=== PATIENT | female | born 1995 | race Caucasian/White ===

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

== ENCOUNTER 2017-02-05 16:05 | Observation (INO) | payer MEDICAID, OTHER ==
--- NOTE | 2017-02-05 17:31 | ED PDOC ---
Arrival/HPI <Jerry Menendez - Last Filed: 02/05/17 18:52> - General Historian: Patient - History of Present Illness Time/Duration: Prior to Arrival Symptom Onset: Sudden Symptom Course: Intermittent Context: Home <Halie Barrientos - Last Filed: 02/05/17 18:56> - General Chief Complaint: Palpitations Time Seen by Provider: 02/05/17 16:48 - History of Present Illness Narrative History of Present Illness (Text): 02/05/17 17:20 21 yo female with PMH of wang parkinson white syndrome s/p ablation, anxiety presented to ED with palpitations. Patient states that for the past 3-4 days she has been experiencing palpitation, the last one occurred 20 minutes prior to arrival. Today patient had multiple episodes. The episodes last for about 10 -25 minutes. She states that with the palpitation she has chest tightness and SOB. The episodes occur at rest and with activities. Patient states that her gun fitter previously advised her to squat and bare down. Patient had ablation 3-4 year ago and has had occasional episodes. Patient states that this week she also start a new diet taking apple cider vinegar shots. She reports some weakness with the start of her diet. She denies fever, chills, abd pain, recent travel. Patient states that she recently had miscarriage but has not had appropriate follow up due to lack of insurance. PMD: none (Halie Barrientos) Past Medical History - Provider Review Nursing Documentation Reviewed: Yes - Travel History Have you recently traveled outside [place] w/in the past 3 mons?: No - Infectious Disease Hx of Infectious Diseases: None - Tetanus Immunization Tetanus Immunization: Unknown - Cardiac Hx Cardiac Disorders: Yes Other/Comment: Imkbb-Qvzjfebx-Ifmcu Syndrome - Pulmonary Hx Respiratory Disorders: No - Neurological Hx Neurological Disorder: No Hx Alzheimer's Disease: No - HEENT Hx HEENT Disorder: No - Renal Hx Renal Disorder: No - Endocrine/Metabolic Hx Endocrine Disorders: No - Hematological/Oncological Hx Blood Disorders: No - Integumentary Hx Dermatological Disorder: No - Musculoskeletal/Rheumatological Hx Musculoskeletal Disorders: No - Gastrointestinal Hx Gastrointestinal Disorders: No - Genitourinary/Gynecological Hx Genitourinary Disorders: No - Psychiatric Hx Psychophysiologic Disorder: Yes Hx Anxiety: Yes Hx Substance Use: Yes (CANNABIS) - Surgical History Other/Comment: Opony-Rynqqjww-Parqt Syndrome ablasion August 2014 - Anesthesia Hx Anesthesia: Yes Hx Anesthesia Reactions: No Hx Malignant Hyperthermia: No <Halie Barrientos - Last Filed: 02/05/17 18:56> Family/Social History - Physician Review Nursing Documentation Reviewed: Yes Family/Social History: No Known Family HX Smoking Status: Light Smoker < 10 Cigarettes Daily Hx Alcohol Use: Yes Frequency of alcohol use: Socially Hx Substance Use: Yes (CANNABIS) <Halie Barrientos - Last Filed: 02/05/17 18:56> Allergies/Home Meds <Jerry Menendez - Last Filed: 02/05/17 18:52> <Halie Barrientos - Last Filed: 02/05/17 18:56> Allergies/Adverse Reactions: Allergies milk Allergy (Verified 02/05/17 16:31) ANAPHYLAXIS peanut Allergy (Verified 02/05/17 16:31) ANAPHYLAXIS shellfish derived Allergy (Verified 02/05/17 16:31) ANAPHYLAXIS Home Medications: Home Meds Medication Instructions Recorded Confirmed No Known Home Med 02/05/17 02/05/17 Review of Systems - Review of Systems Constitutional: Fatigue. absent: Fevers Eyes: Normal. absent: Vision Changes ENT: Normal. absent: Sore Throat, Rhinorrhea, Sinus Congestion Respiratory: SOB (with palpitaions ). absent: Cough, Wheezing Cardiovascular: Chest Pain, Palpitations. absent: Edema, Calf Pain, Syncope Gastrointestinal: Normal. absent: Abdominal Pain, Constipation, Diarrhea, Nausea, Vomiting Genitourinary Female: Normal. absent: Dysuria, Frequency, Hematuria Musculoskeletal: Normal. absent: Arthralgias, Back Pain, Myalgias Skin: Normal. absent: Rash, Pruritis, Laceration, Ulcer Neurological: Normal. absent: Headache, Dizziness, Focal Weakness Endocrine: Normal. absent: Polyuria, Polydipsia Hemo/Lymphatic: Normal. absent: Easy Bleeding, Easy Bruising Psychiatric: Anxiety. absent: Depression <Halie Barrientos - Last Filed: 02/05/17 18:56> Physical Exam - Systems Exam Head: Present: Atraumatic, Normocephalic Pupils: Present: PERRL. No: Non-Reactive, Pinpoint Extroacular Muscles: Present: EOMI Conjunctiva: Present: Normal Mouth: Present: Moist Mucous Membranes Nose (External): Present: Atraumatic Neck: Present: Normal Range of Motion. No: MIDLINE TENDERNESS Respiratory/Chest: Present: Clear to Auscultation, Good Air Exchange. No: Respiratory Distress, Accessory Muscle Use, Wheezes, Rales, Rhonchi, Tachypneic Cardiovascular: Present: Regular Rate and Rhythm, Normal S1, S2. No: Murmurs, Irregular Rhythm, Tachycardic, Bradycardic Abdomen: Present: Normal Bowel Sounds. No: Tenderness, Distention, Peritoneal Signs Back: Present: Normal Inspection Upper Extremity: Present: Normal Inspection, NORMAL PULSES. No: Cyanosis, Edema , Tenderness, Swelling Lower Extremity: Present: Normal Inspection. No: Edema, CALF TENDERNESS Neurological: Present: GCS=15, CN II-XII Intact, Speech Normal Skin: Present: Warm, Dry, Normal Color. No: Rashes Psychiatric: Present: Alert, Oriented x 3, Normal Insight, Normal Concentration <Halie Barrientos - Last Filed: 02/05/17 18:56> Vital Signs Temp Pulse Resp BP Pulse Ox 02/05/17 18:50 85 18 135/87 99 02/05/17 16:32 98.4 F 85 17 96/61 L 97 Medical Decision Making <Jerry Menendez - Last Filed: 02/05/17 18:52> <Halie Barrientos - Last Filed: 02/05/17 18:56> ED Course and Treatment: 02/05/17 17:33 Impression: 21 yo female with PMH of wang parkinson white syndrome s/p ablation, anxiety presented to ED with palpitations. Differential diagnosis includes but not limited to: - arrhythmia Plan - EKG - CBC, CMP - cardiac ISO - test - cxr 02/05/17 18:54 - Lab reviewed, WNL, pregnacny test negative. EKG 83 BPM, no ST changes., no delta waves. CXR review no active disease. Patient is doing well, no complaints of palpitations, chest pain. Patient will be admitted for observation for any cardiac events. (Halie Barrientos) - Lab Interpretations Lab Results: 02/05/17 17:30 02/05/17 17:30 Lab Results 02/05/17 17:30: Sodium 143, Potassium 3.7, Chloride 107, Carbon Dioxide 23, Anion Gap 17, BUN 12, Creatinine 0.8, Est GFR ( Amer) > 60, Est GFR (Non- Af Amer) > 60, Random Glucose 83, Calcium 9.7, Total Bilirubin 0.7, AST 31, ALT 47, Alkaline Phosphatase 110, Lactate Dehydrogenase 621, Total Creatine Kinase 74, Troponin I < 0.01, Total Protein 8.2, Albumin 4.5, Globulin 3.7, Albumin/ Globulin Ratio 1.2 02/05/17 17:30: WBC 6.7, RBC 5.03, Hgb 12.1, Hct 37.8, MCV 75.1 L, MCH 24.1 L, MCHC 32.0, RDW 14.3, Plt Count 241, MPV 9.9, Gran % 65.2, Lymph % (Auto) 25.6, [place] % (Auto) 4.2, Eos % (Auto) 4.7, Baso % (Auto) 0.3, Gran # 4.34, Lymph # 1.7 , [place] # 0.3, Eos # 0.3, Baso # 0.02 - RAD Interpretation Radiology Orders: 02/05/17 17:41 CXR [CHEST PORTABLE] [RAD] Stat - EKG Interpretation EKG Interpretation (Text): 02/05/17 17:35 Rate: 83 BPM NSR, no ST changes, no deltawaves, ND wnl (Halie Barrientos) ED OBSERVATION Date of observation admission: 02/05/17 Time of observation admission: 16:48 <Jerry Menendez - Last Filed: 02/05/17 18:52> <Halie Barrientos - Last Filed: 02/05/17 18:56> - Observation admission statement Patient is being placed in observation because:: Needs to be placed on observation for monitoring of palpitations. (Jerry Menendez) - Goals of Observation Goals of observation are:: Patient Seen With Resident: In agreement with resident note which contains more details about the patient. Patient was seen and evaluated with resident. Came up with plan and treatment together. A 21 year old female presents with palpitations and shortness of breath and chest tightness. Additional HPI details as noted by resident. On physical exam, no acute findings. EKG and labs ordered. (Jerry Menendez) - Progress Note Progress Note: 02/05/17 18:[address] Roy Guardian Family Member who states to place on observation overnight and he will evaluate patient in the AM CXR nl. Case signed out to Dr. Meza, Perforating Machine Operator. Admitted to the hospitalist service. (Jerry Menendez) - Scribe Statement The provider has reviewed the documentation as recorded by the Scribe <Jerry Menendez - Last Filed: 02/05/17 18:52> <Halie Barrientos - Last Filed: 02/05/17 18:56> - Scribe Statement Raza Dee Provider Scribe Attestation: All medical record entries made by the Scribe were at my direction and personally dictated by me. I have reviewed the chart and agree that the record accurately reflects my personal performance of the history, physical exam, medical decision making, and the department course for this patient. I have also personally directed, reviewed, and agree with the discharge instructions and disposition. (Jerry Menendez) Disposition/Present on Arrival - Present on Arrival Any Indicators Present on Arrival: No - Disposition Have Diagnosis and Disposition been Completed?: Yes Disposition Time: 18:53 Patient Plan: Observation <Jerry Menendez - Last Filed: 02/05/17 18:52> - Present on Arrival History of DVT/PE: No History of Uncontrolled Diabetes: No Urinary Catheter: No History of Decub. Ulcer: No History Surgical Site Infection Following: None - Disposition Have Diagnosis and Disposition been Completed?: Yes <Halie Barrientos - Last Filed: 02/05/17 18:56> - Disposition Diagnosis: Palpitations, Chest pain Patient Problems: Current Active Problems Problem Status Onset Palpitations Acute Chest pain Acute Condition: GOOD
[2017-02-05 17:51] LABS: ADD MANUAL DIFF? NO
[2017-02-05 18:01] LABS: BASO # 0.02 K/mm3 (0.0-2.0); BASO % 0.3 % (0.0-3.0); EOS # 0.3 (0.0-0.7); EOS % 4.7 % (1.5-5.0); GRAN # 4.34 (1.4-6.5); GRAN % 65.2 % (50.0-68.0); HEMATOCRIT 37.8 % (36.0-48.0); LYMPH # 1.7 (1.2-3.4); LYMPH % 25.6 % (22.0-35.0); MEAN CELL VOLUME 75.1 fL (80.0-105.0); MEAN CORPUSCULAR HEMOGLOBIN 24.1 pg (25.0-35.0); MEAN PLATELET VOLUME 9.9 fl (7.0-11.0); MONO # 0.3 (0.1-0.6); MONO % 4.2 % (1.0-6.0); PLATELET COUNT 241 10^3/uL (120.0-450.0); RED CELL DISTRIBUTION WIDTH 14.3 % (11.5-14.5); WHITE BLOOD COUNT 6.7 10^3/ul (4.5-11.0)
[2017-02-05 18:06] LABS: ALB/GLOB RATIO 1.2 (1.1-1.8); ALKALINE PHOSPHATASE 110 U/L (38-133); ALT/SGPT 47 U/L (7-56); AST/SGOT 31 U/L (15-39); BILIRUBIN,TOTAL 0.7 mg/dL (0.2-1.3); BLOOD UREA NITROGEN 12 mg/dL (7-21); CALCIUM 9.7 mg/dL (8.4-10.5); CARBON DIOXIDE 23 mmol/L (21-33); CHLORIDE 107 mmol/L (98-107); GFR AFRICAN-AMERICAN > 60; GLUCOSE,RANDOM 83 mg/dL (70-110); POTASSIUM 3.7 mmol/L (3.6-5.0); SODIUM 143 mmol/L (132-148); TOTAL PROTEIN 8.2 g/dL (5.8-8.3)
[2017-02-05 18:18] LABS: TROPONIN I < 0.01 ng/mL
--- NOTE | 2017-02-05 19:24 | CP.PCM.HP ---
<VicenteRufino - Last Filed: 02/05/17 19:37> History of Present Illness - History of Present Illness History of Present Illness: CC: palpitations This patient is a 21yo F w/ a PMHx of WPW s/p ablation therapy 4 years ago at [facility]; she had been following up there with a account executive healthcare until this year when her insurance ran out. She states that for the past week she has been experiencing palpitations, and normally will squat down and bear down which typically cures her palpitations. She is on no medications. She states she had a miscarriage 1 month ago and UTI for which she was treated with an unknown antibiotic; she has never been other than this time. She denies fevers/chills, VALLE, CP, SOB, current palpitations, abdominal pain, N/V/D, leg swelling/pain, no decreased exercise tolerance, uses 1 pillow to sleep, has never woken up in the middle of the night gasping for air. PMHx: WPW s/p ablation 4 years ago Allergies: None Surgeries: ablation Social: Lives at home, not in college, admits to occasional drug use marijuana only states she felt like she has been "laced with daniel dust" a few times, smokes 3-4 cigarettes daily, denies other drug use. FamHx: Denies Meds: denies Present on Admission - Present on Admission Any Indicators Present on Admission: No History of DVT/PE: No History of Uncontrolled Diabetes: No Urinary Catheter: No Decubitus Ulcer Present: No Past Patient History - Infectious Disease Hx of Infectious Diseases: None - Tetanus Immunizations Tetanus Immunization: Unknown - Past Social History Smoking Status: Light Smoker < 10 Cigarettes Daily - CARDIAC Hx Cardiac Disorders: Yes Other/Comment: Qeztn-Tjfxnjvz-Bjpxl Syndrome - PULMONARY Hx Respiratory Disorders: No - NEUROLOGICAL Hx Neurological Disorder: No Hx Alzheimer's Disease: No - HEENT Hx HEENT Problems: No - RENAL Hx Chronic Kidney Disease: No - ENDOCRINE/METABOLIC Hx Endocrine Disorders: No - HEMATOLOGICAL/ONCOLOGICAL Hx Blood Disorders: No - INTEGUMENTARY Hx Dermatological Problems: No - MUSCULOSKELETAL/RHEUMATOLOGICAL Hx Musculoskeletal Disorders: No - GASTROINTESTINAL Hx Gastrointestinal Disorders: No - GENITOURINARY/GYNECOLOGICAL Hx Genitourinary Disorders: No - PSYCHIATRIC Hx Psychophysiologic Disorder: Yes Hx Anxiety: Yes Hx Substance Use: Yes (CANNABIS) - SURGICAL HISTORY Other/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 - ANESTHESIA Hx Anesthesia: Yes Hx Anesthesia Reactions: No Hx Malignant Hyperthermia: No Meds Allergies/Adverse Reactions: Allergies Allergy/AdvReac Type Severity Reaction Status Date / Time milk Allergy ANAPHYLAXIS Verified 02/05/17 16:31 peanut Allergy ANAPHYLAXIS Verified 02/05/17 16:31 shellfish derived Allergy ANAPHYLAXIS Verified 02/05/17 16:31 Physical Exam - Constitutional Appears: Well, Non-toxic Additional comments: Obese pleasant teenage F responding appropriately to questions resting comfortably in bed - Head Exam Head Exam: ATRAUMATIC - Eye Exam Eye Exam: EOMI, Normal appearance Pupil Exam: NORMAL ACCOMODATION - ENT Exam ENT Exam: Mucous Membranes Moist - Neck Exam Neck exam: Positive for: Normal Inspection. Negative for: Tenderness - Respiratory Exam Respiratory Exam: Clear to Auscultation Bilateral, NORMAL BREATHING PATTERN. absent: Rales, Rhonchi, Wheezes - Cardiovascular Exam Cardiovascular Exam: REGULAR RHYTHM, +S1, +S2 - GI/Abdominal Exam GI & Abdominal Exam: Normal Bowel Sounds, Soft. absent: Tenderness - Rectal Exam Rectal Exam: Deferred - Extremities Exam Extremities exam: Positive for: full ROM, normal capillary refill, normal inspection. Negative for: calf tenderness, joint swelling, pedal edema, tenderness - Back Exam Back exam: NORMAL INSPECTION. absent: CVA tenderness (L), CVA tenderness (R) - Neurological Exam Neurological exam: Alert, CN II-XII Intact, Oriented x3, Reflexes Normal - Psychiatric Exam Psychiatric exam: Normal Affect, Normal Mood - Skin Skin Exam: Intact Results - Vital Signs Recent Vital Signs: Last Vital Signs Temp 98.4 F 02/05/17 16:32 Pulse 85 02/05/17 18:50 Resp 18 02/05/17 18:50 BP 135/87 02/05/17 18:50 Pulse Ox 99 02/05/17 18:50 - Labs Result Diagrams: 02/05/17 17:30 02/05/17 17:30 Assessment & Plan - Assessment and Plan (Free Text) Assessment: 21yo F admitted for Palpitations Palpitations -patient has known WPW -Cardio Consult; [facility]; appreciate recs -echo ordered; f/u results; portable chest showed possible cardiomegaly; last echo was 5 years ago according to patient -telemetry monitoring -will check mag and phos; can contribute to arrythmia -in the event she has palpitations patient should bear down -EKG did not show any delta wave or shortened SC interval; will repeat in AM -f/u next trop; initial negative Proph -Pepcid -SCD -regular diet Patient seen and examined with Dr. Kelsea Meza PGY1 Night Float Decision To Admit - Pt Status Changed To: Hospital Disposition Of: Observation - . Bed Request Type: Telemetry Admitting Physician: Luca Enamorado <Luca Enamorado - Last Filed: 02/05/17 22:18> Results - Vital Signs Recent Vital Signs: Last Vital Signs Temp 98.4 F 02/05/17 16:32 Pulse 81 02/05/17 20:03 Resp 18 02/05/17 20:03 BP 131/68 02/05/17 20:03 Pulse Ox 100 02/05/17 20:03 - Labs Result Diagrams: 02/05/17 17:30 02/05/17 17:30 Labs: Laboratory Results - last 24 hr 02/05/17 02/05/17 19:00 20:00 Urine HCG, Qual Negative Urine Opiates Screen Negative Urine Methadone Screen Negative Ur Barbiturates Screen Negative Ur Phencyclidine Scrn Negative Ur Amphetamines Screen Negative U Benzodiazepines Scrn Negative U Oth Cocaine Metabols Negative U Cannabinoids Screen Negative Attending/Attestation - Attestation I have personally seen and examined this patient.: Yes I have fully participated in the care of the patient.: Yes I have reviewed all pertinent clinical information: Yes
[2017-02-05 19:54] LABS: MAGNESIUM 1.9 mg/dL (1.7-2.2); PHOSPHOROUS 3.7 mg/dL (2.5-4.5)
[2017-02-05 20:04] VITALS: O2SAT 100
[2017-02-06 04:05] VITALS: RESP 20; BMI 50.1
[2017-02-06 06:44] LABS: ADD MANUAL DIFF? NO
[2017-02-06 07:08] LABS: BASO # 0.03 K/mm3 (0.0-2.0); BASO % 0.5 % (0.0-3.0); EOS # 0.4 (0.0-0.7); EOS % 6.7 % (1.5-5.0); GRAN # 3.24 (1.4-6.5); GRAN % 55.4 % (50.0-68.0); LYMPH # 1.8 (1.2-3.4); LYMPH % 30.6 % (22.0-35.0); MEAN CELL VOLUME 75.6 fL (80.0-105.0); MEAN CORPUSCULAR HEMOGLOBIN 23.9 pg (25.0-35.0); MEAN CORPUSCULAR HGB CONC 31.7 g/dl (31.0-37.0); MEAN PLATELET VOLUME 9.5 fl (7.0-11.0); MONO # 0.4 (0.1-0.6); MONO % 6.8 % (1.0-6.0); PLATELET COUNT 270 10^3/uL (120.0-450.0); RED CELL DISTRIBUTION WIDTH 14.3 % (11.5-14.5); WHITE BLOOD COUNT 5.9 10^3/ul (4.5-11.0)
[2017-02-06 08:34] LABS: ALB/GLOB RATIO 1.2 (1.1-1.8); ALKALINE PHOSPHATASE 91 U/L (38-133); ALT/SGPT 40 U/L (7-56); AST/SGOT 60 U/L (15-39); BILIRUBIN,TOTAL 0.5 mg/dL (0.2-1.3); BLOOD UREA NITROGEN 14 mg/dL (7-21); CALCIUM 8.9 mg/dL (8.4-10.5); CARBON DIOXIDE 27 mmol/L (21-33); CHLORIDE 104 mmol/L (98-107); GFR AFRICAN-AMERICAN > 60; GLUCOSE,RANDOM 80 mg/dL (70-110); POTASSIUM 3.6 mmol/L (3.6-5.0); SODIUM 139 mmol/L (132-148); TOTAL PROTEIN 6.9 g/dL (5.8-8.3)
--- NOTE | 2017-02-06 08:56 | RAD ---
HISTORY: chestpain COMPARISON: No prior. FINDINGS: LUNGS: No active pulmonary disease. PLEURA: No significant pleural effusion identified, no pneumothorax apparent. CARDIOVASCULAR: Normal. OSSEOUS STRUCTURES: No significant abnormalities. VISUALIZED UPPER ABDOMEN: Normal. OTHER FINDINGS: None. IMPRESSION: No active disease.
--- NOTE | 2017-02-06 13:05 | CP.PCM.PN ---
<AngeloBolivar soto - Last Filed: 02/06/17 13:09> Subjective - Date & Time of Evaluation Date of Evaluation: 02/06/17 Time of Evaluation: 09:00 - Subjective Subjective: Pt was seen and examined at bedside. Pt has no acute complaints at this time. Pt states she is feeling better and without and further episodes of palpitations. As per nursing staff, no acute or adverse events overnight. Pt denied fever, chills, dizziness, confusion, sob, chest pains, palpitations, abdominal pains, n/v/d/c or urinary symptoms. Objective - Vital Signs/Intake and Output Vital Signs (last 24 hours): Temp Pulse Resp BP Pulse Ox 98.1 F 89 20 113/69 100 02/06/17 06:00 02/06/17 06:00 02/06/17 06:00 02/06/17 06:00 02/05/17 20:03 Intake and Output: 02/06/17 02/06/17 06:59 18:59 Intake Total 480 Output Total 350 Balance 130 - Medications Medications: Current Medications Acetaminophen (Tylenol 325mg Tab) 650 mg PO Q6H PRN PRN Reason: Fever >100.4 F Famotidine (Pepcid) 20 mg PO BID KEYLA Last Admin: 02/06/17 09:05 Dose: 20 mg Ibuprofen (Motrin Tab) 600 mg PO Q6H PRN PRN Reason: Pain, Mild (1-3) - Labs Labs: 02/06/17 06:30 02/06/17 06:30 - Constitutional Appears: Well, No Acute Distress - Head Exam Head Exam: ATRAUMATIC, NORMAL INSPECTION, NORMOCEPHALIC - Eye Exam Eye Exam: EOMI, Normal appearance, PERRL Pupil Exam: NORMAL ACCOMODATION, PERRL - ENT Exam ENT Exam: Mucous Membranes Moist, Normal Exam - Respiratory Exam Respiratory Exam: Clear to Ausculation Bilateral, NORMAL BREATHING PATTERN - Cardiovascular Exam Cardiovascular Exam: REGULAR RHYTHM, +S1, +S2. absent: Murmur - GI/Abdominal Exam GI & Abdominal Exam: Soft, Normal Bowel Sounds. absent: Tenderness - Extremities Exam Extremities Exam: Full ROM, Normal Capillary Refill, Normal Inspection. absent : Joint Swelling, Pedal Edema - Back Exam Back Exam: NORMAL INSPECTION - Neurological Exam Neurological Exam: Alert, Awake, CN II-XII Intact, Normal Gait, Oriented x3 - Psychiatric Exam Psychiatric exam: Normal Affect, Normal Mood - Skin Skin Exam: Dry, Intact, Normal Color, Warm Assessment and Plan - Assessment and Plan (Free Text) Assessment: 21 F with PMHx of WPW presenting with multiple episodes of palpitations. Palpitations -patient has known WPW s/p ablation 3-4 years ago a [facility] Dr. Pam Rodriguez -Cardio Consult; Dr. Boyce following, continue to monitor on tele -echo ordered; f/u results -in the event she has palpitations patient should bear down -EKG did not show any delta wave or shortened MN interval; will repeat in AM -serial trops neg - FU TSH Tobacco abuse - Educated on tobacco cessation - Nicotine patch offered Proph -Pepcid -SCD -regular diet <Jonas PEREZ,Dalton - Last Filed: 02/06/17 15:33> Objective - Vital Signs/Intake and Output Vital Signs (last 24 hours): Temp Pulse Resp BP Pulse Ox 97.8 F 70 20 104/56 L 100 02/06/17 12:00 02/06/17 12:00 02/06/17 12:00 02/06/17 12:00 02/05/17 20:03 Intake and Output: 02/06/17 02/06/17 06:59 18:59 Intake Total 480 Output Total 350 Balance 130 - Labs Labs: 02/06/17 06:30 02/06/17 06:30 Attending/Attestation - Attestation I have personally seen and examined this patient.: Yes I have fully participated in the care of the patient.: Yes I have reviewed all pertinent clinical information, including history, physical exam and plan: Yes Notes (Text): 02/06/17 15:33 Patient was seen and examined with biomedical equipment tech .Agreed with resident assessment and plan. Management plan was discussed in detail with patient Education was provided.
--- NOTE | 2017-02-06 13:06 | CARD ---
APPROVED REPORT EXAM: Two-dimensional and M-mode echocardiogram with Doppler and color Doppler. INDICATION WPW/CP/PALPITATIONS 2D DIMENSIONS Left Atrium (2D)3.1 (1.6-4.0cm)IVSd0.8 (0.7-1.1cm) LVDd4.4 (3.9-5.9cm)PWd0.9 (0.7-1.1cm) LVDs2.6 (2.5-4.0cm)FS (%) 41.0 % LVEF (%)72.0 (>50%) M-Mode DIMENSIONS Aortic Root2.50 (2.2-3.7cm)Aortic Cusp Exc.1.70 (1.5-2.0cm) Aortic Valve AoV Peak Mkwzfuww729.0cm/Alfred Peak GR.10mmHg Mitral Valve MV E Ycibxzqb07.7cm/sMV A Qpilwqxw94.7cm/sE/A ratio1.6 TDI Lateral E' Peak V19.80cm/sMedial E' Peak V11.50cm/sE/Lateral E'5.0 E/Medial E'8.7 Pulmonary Valve PV Peak Eamoexdx70.0cm/sPV Peak Grad.2mmHg Tricuspid Valve TR Peak Gxjvyhdm233ku/sRAP OOOQBLQC96cmAwGL Peak Gr.13mmHg [id number] LEFT VENTRICLE The left ventricle is normal size. There is normal left ventricular wall thickness. The left ventricular function is normal. The left ventricular ejection fraction is within the normal range. There is normal LV segmental wall motion. The left ventricular diastolic function is normal. RIGHT VENTRICLE The right ventricle is normal size. There is normal right ventricular wall thickness. The right ventricular systolic function is normal. ATRIA The left atrium size is normal. The right atrium size is normal. AORTIC VALVE The aortic valve is normal in structure. No aortic regurgitation is present. MITRAL VALVE The mitral valve is normal in structure. There is no mitral valve regurgitation noted. TRICUSPID VALVE The tricuspid valve is normal in structure. There is no pulmonary hypertension. GREAT VESSELS The aortic root is normal in size. The IVC is normal in size and collapses >50% with inspiration. <Conclusion> The left ventricle is normal size. There is normal left ventricular wall thickness. The left ventricular function is normal. The left ventricular ejection fraction is within the normal range. There is normal LV segmental wall motion. The left ventricular diastolic function is normal.
[2017-02-06 13:55] VITALS: BP 104/56; PULSE 70; TEMP 97.8
--- NOTE | 2017-02-06 14:09 | CP.PCM.DIS ---
<Bolivar Stephens - Last Filed: 02/06/17 14:55> Provider - Provider Date of Admission: 02/05/17 18:05 Attending physician: Dalton Mcdaniel MD Primary care physician: NO PRIMARY CARE PROVIDER Consults: Cardiology - Dr. Boyce Time Spent in preparation of Discharge (in minutes): 45 Hospital Course - Lab Results Lab Results: Most Recent Lab Values WBC 5.9 10^3/ul (4.5-11.0) 02/06/17 06:30 RBC 4.76 10^6/uL (3.5-6.1) 02/06/17 06:30 Hgb 11.4 gm/dL (12.0-16.0) L 02/06/17 06:30 Hct 36.0 % (36.0-48.0) 02/06/17 06:30 MCV 75.6 fL (80.0-105.0) L 02/06/17 06:30 MCH 23.9 pg (25.0-35.0) L 02/06/17 06:30 MCHC 31.7 g/dl (31.0-37.0) 02/06/17 06:30 RDW 14.3 % (11.5-14.5) 02/06/17 06:30 Plt Count 270 10^3/uL (120.0-450.0) 02/06/17 06:30 MPV 9.5 fl (7.0-11.0) 02/06/17 06:30 Gran % 55.4 % (50.0-68.0) 02/06/17 06:30 Lymph % (Auto) 30.6 % (22.0-35.0) 02/06/17 06:30 Foard % (Auto) 6.8 % (1.0-6.0) H 02/06/17 06:30 Eos % (Auto) 6.7 % (1.5-5.0) H 02/06/17 06:30 Baso % (Auto) 0.5 % (0.0-3.0) 02/06/17 06:30 Gran # 3.24 (1.4-6.5) 02/06/17 06:30 Lymph # 1.8 (1.2-3.4) 02/06/17 06:30 Foard # 0.4 (0.1-0.6) 02/06/17 06:30 Eos # 0.4 (0.0-0.7) 02/06/17 06:30 Baso # 0.03 K/mm3 (0.0-2.0) 02/06/17 06:30 Sodium 139 mmol/L (132-148) 02/06/17 06:30 Potassium 3.6 mmol/L (3.6-5.0) 02/06/17 06:30 Chloride 104 mmol/L (98-107) 02/06/17 06:30 Carbon Dioxide 27 mmol/L (21-33) 02/06/17 06:30 Anion Gap 12 (10-20) 02/06/17 06:30 BUN 14 mg/dL (7-21) 02/06/17 06:30 Creatinine 0.8 mg/dL (0.5-1.4) 02/06/17 06:30 Est GFR ( Amer) > 60 02/06/17 06:30 Est GFR (Non-Af Amer) > 60 02/06/17 06:30 Random Glucose 80 mg/dL (70-110) 02/06/17 06:30 Calcium 8.9 mg/dL (8.4-10.5) 02/06/17 06:30 Phosphorus 3.7 mg/dL (2.5-4.5) 02/05/17 17:35 Magnesium 1.9 mg/dL (1.7-2.2) 02/05/17 17:35 Total Bilirubin 0.5 mg/dL (0.2-1.3) 02/06/17 06:30 AST 60 U/L (15-39) H 02/06/17 06:30 ALT 40 U/L (7-56) 02/06/17 06:30 Alkaline Phosphatase 91 U/L (38-133) 02/06/17 06:30 Lactate Dehydrogenase 621 U/L (333-699) 02/05/17 17:30 Total Creatine Kinase 74 U/L (35-230) 02/05/17 17:30 Troponin I < 0.01 ng/mL 02/06/17 00:05 Total Protein 6.9 g/dL (5.8-8.3) 02/06/17 06:30 Albumin 3.7 g/dL (3.0-4.8) 02/06/17 06:30 Globulin 3.2 gm/dL 02/06/17 06:30 Albumin/Globulin Ratio 1.2 (1.1-1.8) 02/06/17 06:30 Urine HCG, Qual Negative (NEGATIVE) 02/05/17 20:00 Urine Opiates Screen Negative (NEGATIVE) 02/05/17 19:00 Urine Methadone Screen Negative (NEGATIVE) 02/05/17 19:00 Ur Barbiturates Screen Negative (NEGATIVE) 02/05/17 19:00 Ur Phencyclidine Scrn Negative (NEGATIVE) 02/05/17 19:00 Ur Amphetamines Screen Negative (NEGATIVE) 02/05/17 19:00 U Benzodiazepines Scrn Negative (NEGATIVE) 02/05/17 19:00 U Oth Cocaine Metabols Negative (NEGATIVE) 02/05/17 19:00 U Cannabinoids Screen Negative (NEGATIVE) 02/05/17 19:00 - Hospital Course Hospital Course: Pt is a 21yo F w/ a PMHx of WPW s/p ablation therapy 4 years ago at [facility] ; she had been following up there with a pediatric social worker until this year when her insurance ran out. She states that for the past week she has been experiencing palpitations, and normally will squat down and bear down which typically cures her palpitations. She is on no medications. She states she had a miscarriage 1 month ago and UTI for which she was treated with an unknown antibiotic; she has never been other than this time. Pt was admitted for multiple episodes of palpitations on 02/05/17. Pt has known WPW s/p ablation 3-4 years ago a [facility] Dr. Mendoza. Cardio Consult was placed, pt on tele monitoring and no further episodes of irregular rhythm. Dr. Boyce following. Echo was ordered with EF of 72%. Serial trops were negative. Pt was cleared by cardio to be dc home with fu with PMD and cardiology. Pt is to fu with PMD as per pt choice or fu with [facility] within 1 week. Pt is to fu with cardiology as per PMD or Dr. Boyce within 1 week. Pt has been educated on tobacco cessation with options on how to quit. Discharge Exam - Head Exam Head Exam: ATRAUMATIC, NORMAL INSPECTION, NORMOCEPHALIC - Eye Exam Eye Exam: EOMI, Normal appearance, PERRL Pupil Exam: NORMAL ACCOMODATION, PERRL - ENT Exam ENT Exam: Mucous Membranes Moist - Respiratory Exam Respiratory Exam: Clear to PA & Lateral, NORMAL BREATHING PATTERN, UNREMARKABLE - Cardiovascular Exam Cardiovascular Exam: RRR, +S1, +S2 - GI/Abdominal Exam GI & Abdominal Exam: Normal Bowel Sounds, Soft. absent: Tenderness - Extremities Exam Extremities exam: normal inspection - Back Exam Back exam: NORMAL INSPECTION - Neurological Exam Neurological exam: Alert, CN II-XII Intact, Normal Gait, Oriented x3, Reflexes Normal - Psychiatric Exam Psychiatric exam: Normal Affect, Normal Mood - Skin Skin Exam: Dry, Intact, Normal Color, Warm Discharge Plan - Follow Up Plan Condition: GOOD Disposition: HOME/ ROUTINE Instructions: Chest Pain (DC), Palpitations (DC) Additional Instructions: 1. Patient is to follow up with her Primary Medical Doctor of choice within 3-5 days. 2. Patient is to follow up with her quality control assessor as recommended by her Primary Medical Doctor. 3. Patient is welcome to return to [facility], Emergency Department if patient develops any acute symptoms. Referrals: PCP,NO [Primary Care Provider] - <Dalton Mcdaniel MD - Last Filed: 02/06/17 15:37> Provider - Provider Date of Admission: 02/05/17 18:05 Attending physician: Dalton Mcdaniel MD Primary care physician: NO PRIMARY CARE PROVIDER Hospital Course - Lab Results Lab Results: Most Recent Lab Values WBC 5.9 10^3/ul (4.5-11.0) 02/06/17 06:30 RBC 4.76 10^6/uL (3.5-6.1) 02/06/17 06:30 Hgb 11.4 gm/dL (12.0-16.0) L 02/06/17 06:30 Hct 36.0 % (36.0-48.0) 02/06/17 06:30 MCV 75.6 fL (80.0-105.0) L 02/06/17 06:30 MCH 23.9 pg (25.0-35.0) L 02/06/17 06:30 MCHC 31.7 g/dl (31.0-37.0) 02/06/17 06:30 RDW 14.3 % (11.5-14.5) 02/06/17 06:30 Plt Count 270 10^3/uL (120.0-450.0) 02/06/17 06:30 MPV 9.5 fl (7.0-11.0) 02/06/17 06:30 Gran % 55.4 % (50.0-68.0) 02/06/17 06:30 Lymph % (Auto) 30.6 % (22.0-35.0) 02/06/17 06:30 Foard % (Auto) 6.8 % (1.0-6.0) H 02/06/17 06:30 Eos % (Auto) 6.7 % (1.5-5.0) H 02/06/17 06:30 Baso % (Auto) 0.5 % (0.0-3.0) 02/06/17 06:30 Gran # 3.24 (1.4-6.5) 02/06/17 06:30 Lymph # 1.8 (1.2-3.4) 02/06/17 06:30 Foard # 0.4 (0.1-0.6) 02/06/17 06:30 Eos # 0.4 (0.0-0.7) 02/06/17 06:30 Baso # 0.03 K/mm3 (0.0-2.0) 02/06/17 06:30 Sodium 139 mmol/L (132-148) 02/06/17 06:30 Potassium 3.6 mmol/L (3.6-5.0) 02/06/17 06:30 Chloride 104 mmol/L (98-107) 02/06/17 06:30 Carbon Dioxide 27 mmol/L (21-33) 02/06/17 06:30 Anion Gap 12 (10-20) 02/06/17 06:30 BUN 14 mg/dL (7-21) 02/06/17 06:30 Creatinine 0.8 mg/dL (0.5-1.4) 02/06/17 06:30 Est GFR ( Amer) > 60 02/06/17 06:30 Est GFR (Non-Af Amer) > 60 02/06/17 06:30 Random Glucose 80 mg/dL (70-110) 02/06/17 06:30 Calcium 8.9 mg/dL (8.4-10.5) 02/06/17 06:30 Phosphorus 3.7 mg/dL (2.5-4.5) 02/05/17 17:35 Magnesium 1.9 mg/dL (1.7-2.2) 02/05/17 17:35 Total Bilirubin 0.5 mg/dL (0.2-1.3) 02/06/17 06:30 AST 60 U/L (15-39) H 02/06/17 06:30 ALT 40 U/L (7-56) 02/06/17 06:30 Alkaline Phosphatase 91 U/L (38-133) 02/06/17 06:30 Lactate Dehydrogenase 621 U/L (333-699) 02/05/17 17:30 Total Creatine Kinase 74 U/L (35-230) 02/05/17 17:30 Troponin I < 0.01 ng/mL 02/06/17 00:05 Total Protein 6.9 g/dL (5.8-8.3) 02/06/17 06:30 Albumin 3.7 g/dL (3.0-4.8) 02/06/17 06:30 Globulin 3.2 gm/dL 02/06/17 06:30 Albumin/Globulin Ratio 1.2 (1.1-1.8) 02/06/17 06:30 TSH 3rd Generation 2.49 mIU/mL (0.46-4.68) 02/06/17 13:28 Urine HCG, Qual Negative (NEGATIVE) 02/05/17 20:00 Urine Opiates Screen Negative (NEGATIVE) 02/05/17 19:00 Urine Methadone Screen Negative (NEGATIVE) 02/05/17 19:00 Ur Barbiturates Screen Negative (NEGATIVE) 02/05/17 19:00 Ur Phencyclidine Scrn Negative (NEGATIVE) 02/05/17 19:00 Ur Amphetamines Screen Negative (NEGATIVE) 02/05/17 19:00 U Benzodiazepines Scrn Negative (NEGATIVE) 02/05/17 19:00 U Oth Cocaine Metabols Negative (NEGATIVE) 02/05/17 19:00 U Cannabinoids Screen Negative (NEGATIVE) 02/05/17 19:00 Attending/Attestation - Attestation I have personally seen and examined this patient.: Yes I have fully participated in the care of the patient.: Yes I have reviewed all pertinent clinical information, including history, physical exam and plan: Yes Notes (Text): 02/06/17 15:34 Patient was seen and examined with medical social consultant .Agreed with resident assessment and plan. Patient remain stable in the hospital, no arrythmia was noticed on telemetry.EKG is NSR.Patient was evaluated by cardiology , no inpatient work up was recommended.Patient will be discharged home and will follow up with PCP and Cardiology.The issue of ongoing tobacco abuse and drug abuse was discussed in detail with her. Management plan was discussed in detail with patient Education was provided.
--- NOTE | 2017-02-06 17:25 | CON ---
DATE: 02/06/2017 REASON FOR CONSULTATION: Palpitations. HISTORY OF PRESENT ILLNESS: The patient is a 21-year-old female who has WPW and underwent ablation b y pediatric cable braider, whose name is Tony Mendoza at the Hospital, at age 17. The most recent time she saw the laser systems engineer was in January of last year. The patient was on no medication s and lost follow up because of the fact that she became an adult at age 20 and lost medical coverage . The patient presented because of palpitations. She walked to the hospital, as she lives nearby. The patient stated that those palpitations were not as drastic as she used to have before the ablatio n. The patient denies any dizziness or syncope. Since patient's admission to telemetry, there was n o reported arrhythmia SOCIAL HISTORY: The patient is a nonsmoker. MEDICATIONS: The patient is on no medications at home and is not on control pills. REVIEW OF SYSTEMS: The patient had a miscarriage 4 months ago. PHYSICAL EXAMINATION: GENERAL: The patient is a teenager, who does not appear to be in any distress. VITAL SIGNS: Blood pressure 115/69, heart rate 81, temperature 98.1, respirations 20. HEENT: Normocephalic. NECK: No JVD. CHEST: Clear. HEART: S1, S2 regular. ABDOMEN: Soft. EXTREMITIES: No edema, no calf tenderness. LABORATORY DATA: Hemoglobin and hematocrit 11.4 and 36, white count and platelet count 5.9 and 270,0 00. Urine drug screen is negative. SMA-7 today is within normal limits. Two sets of troponins are negative. Review of old EKGs as well as rhythm strips since patient's admission revealed normal sinu s rhythm. ASSESSMENT: 1. History of palpitation. No associated dizziness or syncope. 2. History of Llzrb-Wgrwwtiys-Osmgh status post ablation 4 years ago. RECOMMENDATIONS: Continue current telemetry observation. I will follow the echocardiographic study and if unremarkable, the patient can be discharged and was advised to follow with the Hospital clinic as all her records are available at the Hospital, including her own cable braider. Ger A Hannallah MD cc: [id number] TT: 02/06/2017 17:23:54 Confirmation # [id number] Dictation # [id number]
--- NOTE | 2017-02-06 23:24 | CARD ---
APPROVED REPORT EKG Measurement Heart [id number] <Conclusion> Normal sinus rhythm Normal ECG
== END 2017-02-06 15:05 | disposition home or self-care (01) ==
LOC: ED 16:05 → EROBSV 18:05 → ERH 18:54 → 2RNO 20:54
PROVIDERS: ADMIT Internal Medicine; ATTEND Internal Medicine
DX: R00.2 Palpitations (principal); R07.89 Other chest pain; I45.6 Pre-excitation syndrome; F41.9 Anxiety disorder, unspecified
CPT/HCPCS: 36415; 71010; 80053; 82550; 83615; 83735; 84100; 84443; 84484; 84703; 85025; 93005; 93306; 99285; G0378; G0480

== ENCOUNTER 2017-02-12 12:38 | Emergency (ER) | payer MEDICAID, OTHER ==
[2017-02-12 12:38] VITALS: BMI 50.1
[2017-02-12 13:08] VITALS: RESP 16; TEMP 98.9; O2SAT 99
--- NOTE | 2017-02-12 14:20 | ED PDOC ---
Arrival/HPI - General Chief Complaint: Abnormal Skin Integrity Time Seen by Provider: 02/12/17 13:17 Historian: Patient - History of Present Illness Narrative History of Present Illness (Text): 02/12/17 14:28 A 21 year old female presents to the emergency department complaining of pain to genital area with a discomfort, below the vaginal opening. Patient reports she is sexually active, notes last time she had sex was yesterday. Patient denies any history of sexually transmitted diseases. Patient denies any fever, chills, vaginal discharge, any urinary symptoms, abdominal pain or any other complaints at this time. Time/Duration: Other (today) Symptom Onset: Sudden Symptom Course: Unchanged Activities at Onset: Rest Associated Symptoms (Text): none Past Medical History - Provider Review Nursing Documentation Reviewed: Yes - Infectious Disease Hx of Infectious Diseases: None - Tetanus Immunization Tetanus Immunization: Unknown - Cardiac Hx Cardiac Disorders: Yes Hx Cardiac Arrhythmia: Yes Other/Comment: Xnzcr-Vsdaaxgk-Txfhz Syndrome - Pulmonary Hx Respiratory Disorders: No - Neurological Hx Neurological Disorder: No Hx Alzheimer's Disease: No - HEENT Hx HEENT Disorder: No - Renal Hx Renal Disorder: No - Endocrine/Metabolic Hx Endocrine Disorders: No - Hematological/Oncological Hx Blood Disorders: No - Integumentary Hx Dermatological Disorder: No - Musculoskeletal/Rheumatological Hx Musculoskeletal Disorders: No - Gastrointestinal Hx Gastrointestinal Disorders: No - Genitourinary/Gynecological Hx Genitourinary Disorders: No - Psychiatric Hx Psychophysiologic Disorder: Yes Hx Anxiety: Yes Hx Substance Use: Yes (CANNABIS) - Surgical History Other/Comment: Jxjjv-Exsntwmr-Wcewq Syndrome ablasion August 2014 - Anesthesia Hx Anesthesia: Yes Hx Anesthesia Reactions: No Hx Malignant Hyperthermia: No Family/Social History - Physician Review Nursing Documentation Reviewed: Yes Family/Social History: No Known Family HX Smoking Status: Light Smoker < 10 Cigarettes Daily Hx Alcohol Use: Yes Hx Substance Use: Yes (CANNABIS) Allergies/Home Meds Allergies/Adverse Reactions: Allergies milk Allergy (Verified 02/12/17 13:04) ANAPHYLAXIS peanut Allergy (Verified 02/12/17 13:04) ANAPHYLAXIS shellfish derived Allergy (Verified 02/12/17 13:04) ANAPHYLAXIS Home Medications: Home Meds Medication Instructions Recorded Confirmed No Known Home Med 02/05/17 02/12/17 Review of Systems - Physician Review All systems were reviewed & negative as marked: Yes - Review of Systems Constitutional: absent: Fevers, Other (chills) Gastrointestinal: absent: Abdominal Pain Genitourinary Female: Other (pain and skin tears, vaginal area). absent: Dysuria, Hematuria, Urine Output Changes, Vaginal Bleeding, Vaginal Discharge Physical Exam Vital Signs Reviewed: Yes Vital Signs Temp Pulse Resp BP Pulse Ox 02/12/17 13:04 98.9 F 100 H 16 136/80 99 Temperature: Afebrile Blood Pressure: Normal Pulse: Regular Respiratory Rate: Normal Appearance: Positive for: Well-Appearing, Non-Toxic, Comfortable Pain Distress: None Mental Status: Positive for: Alert and Oriented X 3 - Systems Exam Head: Present: Atraumatic Genitourinary/Pelvic Exam: Present: Normal External Genitalia, Other (minor superficial very superficial skin tears in perineal area; no other lesions seen ; no tenderness; colorectal surgeon: cristofer Person) Medical Decision Making ED Course and Treatment: 02/12/17 14:29 Impression: A 21 year old female with pain and minor superficial skin tears in perineal area , posterior to posterior fourchette. Differential Diagnosis included but are not limited to: superficial skin tear likely due to stretch or sweat vs. herpes Plan: -- Herpes simplex virus culture -- Reassess and disposition Prior Visits: Notes and results from previous visits were reviewed. Patient last reported to the emergency department on 02/05/17 for evaluation of shortness of breath, chest tightness and palpitations. Patient admitted for observation for cardiac events. Progress Notes: Symptoms on exam consistent with skin tear. Herpes viral swab done for testing. Patient will call back for results. Patient given the opportunity to ask question, all questions were answered and there is agreement with the plan to discharge the patient home. Patient is stable for discharge. Patient was instructed to follow up with a account executive software sales or return if symptoms persist/worsen or new concerning symptoms arise. - Scribe Statement The provider has reviewed the documentation as recorded by the Cristofer Dee All medical record entries made by the Cristofer were at my direction and personally dictated by me. I have reviewed the chart and agree that the record accurately reflects my personal performance of the history, physical exam, medical decision making, and the department course for this patient. I have also personally directed, reviewed, and agree with the discharge instructions and disposition. Disposition/Present on Arrival - Present on Arrival Any Indicators Present on Arrival: No History of DVT/PE: No History of Uncontrolled Diabetes: No Urinary Catheter: No History of Decub. Ulcer: No History Surgical Site Infection Following: None - Disposition Have Diagnosis and Disposition been Completed?: Yes Diagnosis: Impaired integrity of skin of perineum Disposition: HOME/ ROUTINE Disposition Time: 14:20 Patient Plan: Discharge Patient Problems: Current Active Problems Problem Status Onset Impaired integrity of skin of perineum Acute Condition: GOOD Additional Instructions: Keep the perineal area (the pubic area in question posterior to the vagina) dry. Recommend using bland soap when washing and dry gently when wiping. Allow to air dry as needed. You may also apply a small amount of baby powder if wearing tight clothing. You may apply neosporin or bacitracin to soothe. Follow up with gynecology. You may call back the emergency department ) after 2 days for the Herpes culture results. Return to the emergency department if any new concerning symptoms. Referrals: Jordan Massey [Medical Doctor] - [facility] [Outside] - Follow up with primary [facility] [Outside] - Follow up with primary
[2017-02-12 15:41] VITALS: BP 132/80; PULSE 90
== END 2017-02-12 14:45 | disposition home or self-care (01) ==
LOC: ED 12:38
DX: N90.9 Noninflammatory disorder of vulva and perineum, unspecified (principal)

== ENCOUNTER 2017-03-24 10:51 | Emergency (ER) | payer MEDICAID, SELFPAY ==
[2017-03-24 11:15] VITALS: BMI 46.4
--- NOTE | 2017-03-24 11:26 | ED PDOC ---
Arrival/HPI - General Chief Complaint: Cough, Cold, Congestion Time Seen by Provider: 03/24/17 11:22 Historian: Patient - History of Present Illness Narrative History of Present Illness (Text): 03/24/17 11:23 This 21 yo female presents to this ED c/o cough x 7 days. Patient stated she was seen at [facility], and prescribed Z-pack. She stated she still with symptoms. Patient admits pmh bronchitis in the past. Patient denies other complains. PERC negative for PE Time/Duration: > week Symptom Onset: Gradual Symptom Course: Worsening Context: Home Past Medical History - Provider Review Nursing Documentation Reviewed: Yes - Infectious Disease Hx of Infectious Diseases: None - Tetanus Immunization Tetanus Immunization: Unknown - Cardiac Hx Cardiac Disorders: Yes Hx Cardiac Arrhythmia: Yes Other/Comment: Rvmmh-Nbpdeaxt-Jztot Syndrome - Pulmonary Hx Respiratory Disorders: No - Neurological Hx Neurological Disorder: No Hx Alzheimer's Disease: No - HEENT Hx HEENT Disorder: No - Renal Hx Renal Disorder: No - Endocrine/Metabolic Hx Endocrine Disorders: No - Hematological/Oncological Hx Blood Disorders: No - Integumentary Hx Dermatological Disorder: No - Musculoskeletal/Rheumatological Hx Musculoskeletal Disorders: No - Gastrointestinal Hx Gastrointestinal Disorders: No - Genitourinary/Gynecological Hx Genitourinary Disorders: No - Psychiatric Hx Psychophysiologic Disorder: Yes Hx Anxiety: Yes Hx Substance Use: Yes (CANNABIS) - Surgical History Other/Comment: Rztka-Mcpupktv-Nxstp Syndrome ablasion August 2014 - Anesthesia Hx Anesthesia: Yes Hx Anesthesia Reactions: No Hx Malignant Hyperthermia: No Family/Social History - Physician Review Nursing Documentation Reviewed: Yes Family/Social History: No Known Family HX Smoking Status: Light Smoker < 10 Cigarettes Daily Hx Alcohol Use: Yes Hx Substance Use: Yes (CANNABIS) Allergies/Home Meds Allergies/Adverse Reactions: Allergies milk Allergy (Verified 02/12/17 13:04) ANAPHYLAXIS peanut Allergy (Verified 02/12/17 13:04) ANAPHYLAXIS shellfish derived Allergy (Verified 02/12/17 13:04) ANAPHYLAXIS Review of Systems - Review of Systems Constitutional: Normal. absent: Fatigue, Weight Change, Fevers Eyes: Normal ENT: Normal Respiratory: Cough Cardiovascular: Normal. absent: Chest Pain Gastrointestinal: Normal. absent: Abdominal Pain, Nausea, Vomiting Genitourinary Female: Normal. absent: Dysuria, Frequency, Hematuria Musculoskeletal: Normal Skin: Normal Neurological: Normal Endocrine: Normal Hemo/Lymphatic: Normal Psychiatric: Normal Physical Exam Vital Signs Temp Pulse Resp BP Pulse Ox 03/24/17 11:16 98.3 F 69 18 117/80 98 Temperature: Afebrile Blood Pressure: Normal Pulse: Regular Respiratory Rate: Normal Appearance: Positive for: Well-Appearing, Non-Toxic, Comfortable Pain Distress: None Mental Status: Positive for: Alert and Oriented X 3 - Systems Exam Head: Present: Atraumatic, Normocephalic Pupils: Present: PERRL Extroacular Muscles: Present: EOMI Conjunctiva: Present: Normal Mouth: Present: Moist Mucous Membranes Neck: Present: Normal Range of Motion Respiratory/Chest: Present: Clear to Auscultation, Good Air Exchange. No: Respiratory Distress, Accessory Muscle Use, Wheezes, Decreased Breath Sounds, Rales, Retracting, Rhonchi Cardiovascular: Present: Regular Rate and Rhythm, Normal S1, S2. No: Murmurs Abdomen: Present: Normal Bowel Sounds. No: Tenderness, Distention, Peritoneal Signs Back: Present: Normal Inspection Upper Extremity: Present: Normal Inspection. No: Cyanosis, Edema Lower Extremity: Present: Normal Inspection, NORMAL PULSES, Normal ROM, Capillary Refill < 2 s. No: Edema Neurological: Present: GCS=15, CN II-XII Intact, Speech Normal, Motor Func Grossly Intact, Normal Sensory Function, Normal Cerebellar Funct, Gait Normal Skin: Present: Warm, Dry, Normal Color. No: Rashes Psychiatric: Present: Alert, Oriented x 3 Medical Decision Making ED Course and Treatment: 03/24/17 13:09 Re-evaluation. Patient feels better. Discussed results and plan with patient who expresses understanding. Counseling was provided regarding the diagnosis and prognosis. All questions answered and there is agreement with the plan to discharge home with instructions. Patient stable for discharge. Return if symptoms persist or worsen. Re-evaluation Time: 13:09 Reassessment Condition: Re-examined, Improved - Lab Interpretations I have reviewed the lab results: Yes (POC was negative) - RAD Interpretation Narrative RAD Interpretations (Text): 03/24/17 13:04 Accession No. : [id number] Patient Name / ID : APOORVA GIORDANO / [id number] Exam Date : 03/24/2017 12:22:36 ( Approved ) Study Comment : Sex / Age : F / 21Y Creator : True Ramos MD Dictator : True Ramos MD Arcade Games Mechanic : Plane Captain : True Ramos MD Approver2 : Report Date : 03/24/2017 12:48:21 My Comment : HISTORY: cough COMPARISON: No prior. TECHNIQUE: Chest PA and lateral FINDINGS: LUNGS: No active pulmonary disease. PLEURA: No significant pleural effusion identified. No pneumothorax apparent. CARDIOVASCULAR: Normal. OSSEOUS STRUCTURES: No significant abnormalities. VISUALIZED UPPER ABDOMEN: Normal. OTHER FINDINGS: None. IMPRESSION: No active disease. Radiology Orders: 03/24/17 11:31 CHEST TWO VIEWS (PA/LAT) [RAD] Stat - Medication Orders Current Medication Orders: Discontinued Medications Albuterol/Ipratropium (Duoneb 3 Mg/0.5 Mg (3 Ml) Ud) 6 ml IH STAT STA Stop: 03/24/17 11:31 Last Admin: 03/24/17 11:54 Dose: 3 ml Dexamethasone (Decadron Inj) 10 mg IM STAT STA Stop: 03/24/17 11:32 Last Admin: 03/24/17 11:55 Dose: 10 mg Promethazine HCl/Codeine (Phenergan/Codeine Oral Syrup) 5 ml PO STAT STA Stop: 03/24/17 11:37 Last Admin: 03/24/17 11:55 Dose: 5 ml Disposition/Present on Arrival - Present on Arrival Any Indicators Present on Arrival: No History of DVT/PE: No History of Uncontrolled Diabetes: No Urinary Catheter: No History of Decub. Ulcer: No History Surgical Site Infection Following: None - Disposition Have Diagnosis and Disposition been Completed?: Yes Diagnosis: Acute bronchitis Disposition: HOME/ ROUTINE Disposition Time: 13:11 Patient Plan: Discharge Patient Problems: Current Active Problems Problem Status Onset Acute bronchitis Acute Condition: GOOD Discharge Instructions (ExitCare): Acute Bronchitis (ED) Additional Instructions: Call private doctor for follow up visit in 1-2 days. Take medication as instructed. Return to emergency if symptoms worsen. Prescriptions: Albuterol HFA [Ventolin HFA 90 mcg/actuation (8 g)] 2 puff IH [id number] PRN #120 puff PRN Reason: Cough Promethazine [Promethazine HCl] 6.25 mg PO Q4H PRN #1 bottle PRN Reason: Cough Referrals: PCP,NO [Primary Care Provider] - Follow up with primary [facility] [Outside] - Follow up with primary [facility] [Outside] - Follow up with primary Forms: [email or web address] ([place])
[2017-03-24] MEDS ORDERED: Promethazine/Cod 6.25mg-10mg/5ml Syr UD PO STA (11:36)
[2017-03-24] MEDS: Albuterol-Ipratrop 3 mg / 0.5 (3 ml) UD IH STA ×2 (11:40→11:54)
--- NOTE | 2017-03-24 12:49 | RAD ---
HISTORY: cough COMPARISON: No prior. TECHNIQUE: Chest PA and lateral FINDINGS: LUNGS: No active pulmonary disease. PLEURA: No significant pleural effusion identified. No pneumothorax apparent. CARDIOVASCULAR: Normal. OSSEOUS STRUCTURES: No significant abnormalities. VISUALIZED UPPER ABDOMEN: Normal. OTHER FINDINGS: None. IMPRESSION: No active disease.
[2017-03-24 13:38] VITALS: BP 130/77; PULSE 72; RESP 16; TEMP 98; O2SAT 97
== END 2017-03-24 13:40 | disposition home or self-care (01) ==
LOC: ED 10:51
DX: J20.9 Acute bronchitis, unspecified (principal); Z72.0 Tobacco use
CPT/HCPCS: 71020; 81025; 96372; 99284; J1100

== ENCOUNTER 2017-06-21 22:45 | Emergency (ER) | payer MEDICAID, OTHER, SELFPAY ==
[2017-06-21 22:45] VITALS: BMI 46.4
[2017-06-21 22:57] VITALS: RESP 18; TEMP 98.4; O2SAT 99
[2017-06-21] MEDS ORDERED: Sodium Chloride 0.9% 1,000 ML IV STA (23:07)
--- NOTE | 2017-06-21 23:08 | ED PDOC ---
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 Patient states she began experiencing nausea and vomiting after smoking marijuana tonight at a republic[employer]. Patient is concerned it may have been laced with other drugs. Patient also admits to drinking alcohol tonight. Patient denies any fever, chills, chest pain, shortness of breath, diarrhea, urinary symptoms, back pain, neck pain, headache, dizziness, or any other complaints. Time/Duration: Other (tonight) Symptom Onset: Gradual Symptom Course: Unchanged Activities at Onset: Light Context: Other (Democrat) Past Medical History - Provider Review Nursing Documentation Reviewed: Yes - Infectious Disease Hx of Infectious Diseases: None - Tetanus Immunization Tetanus Immunization: Unknown - Cardiac Hx Cardiac Disorders: Yes Hx Cardiac Arrhythmia: Yes Other/Comment: Lkqsn-Vcfvdczp-Qqoof Syndrome - Pulmonary Hx Respiratory Disorders: No - Neurological Hx Neurological Disorder: No Hx Alzheimer's Disease: No - HEENT Hx HEENT Disorder: No - Renal Hx Renal Disorder: No - Endocrine/Metabolic Hx Endocrine Disorders: No - Hematological/Oncological Hx Blood Disorders: No - Integumentary Hx Dermatological Disorder: No - Musculoskeletal/Rheumatological Hx Musculoskeletal Disorders: No - Gastrointestinal Hx Gastrointestinal Disorders: No - Genitourinary/Gynecological Hx Genitourinary Disorders: No - Psychiatric Hx Psychophysiologic Disorder: Yes Hx Anxiety: Yes Hx Substance Use: Yes (CANNABIS) - Surgical History Other/Comment: Rzyjw-Fhspekir-Cewzv Syndrome ablasion August 2014 - Anesthesia Hx Anesthesia: Yes Hx Anesthesia Reactions: No Hx Malignant Hyperthermia: No Family/Social History - Physician Review Nursing Documentation Reviewed: Yes Family/Social History: Unknown Family HX Smoking Status: Light Smoker < 10 Cigarettes Daily Hx Alcohol Use: Yes Hx Substance Use: Yes (CANNABIS) Allergies/Home Meds Allergies/Adverse Reactions: Allergies milk Allergy (Verified 02/12/17 13:04) ANAPHYLAXIS peanut Allergy (Verified 02/12/17 13:04) ANAPHYLAXIS shellfish derived Allergy (Verified 02/12/17 13:04) ANAPHYLAXIS Review of Systems - Physician Review All systems were reviewed & negative as marked: Yes - Review of Systems Constitutional: Normal. absent: Fevers Eyes: Normal ENT: Normal Respiratory: Normal. absent: SOB, Cough Cardiovascular: Normal. absent: Chest Pain Gastrointestinal: Nausea, Vomiting. absent: Abdominal Pain, Diarrhea Genitourinary Female: Normal. absent: Dysuria, Frequency, Hematuria, Urine Output Changes Musculoskeletal: Normal. absent: Back Pain, Neck Pain Skin: Normal. absent: Rash Neurological: Normal. absent: Headache, Dizziness Endocrine: Normal Hemo/Lymphatic: Normal Psychiatric: Other (+alcohol intoxication) Physical Exam Vital Signs Reviewed: Yes Vital Signs Temp Pulse Resp BP Pulse Ox 06/22/17 02:45 87 18 134/78 99 06/22/17 00:45 88 18 126/74 100 06/21/17 22:53 98.4 F 122 H 18 125/64 99 Temperature: Afebrile Blood Pressure: Normal Pulse: Regular Respiratory Rate: Normal Appearance: Positive for: Well-Appearing, Non-Toxic, Comfortable, Other (Obese) Pain Distress: None Mental Status: Positive for: Alert and Oriented X 3 - Systems Exam Head: Present: Atraumatic, Normocephalic Pupils: Present: PERRL Extroacular Muscles: Present: EOMI Conjunctiva: Present: Normal Mouth: Present: Moist Mucous Membranes Neck: Present: Normal Range of Motion Respiratory/Chest: Present: Clear to Auscultation, Good Air Exchange. No: Respiratory Distress, Accessory Muscle Use Cardiovascular: Present: Regular Rate and Rhythm, Normal S1, S2. No: Murmurs Abdomen: Present: Normal Bowel Sounds. No: Tenderness, Distention, Peritoneal Signs Back: Present: Normal Inspection Upper Extremity: Present: Normal Inspection. No: Cyanosis, Edema Lower Extremity: Present: Normal Inspection. No: Edema Neurological: Present: GCS=15, CN II-XII Intact, Speech Normal Skin: Present: Warm, Dry, Normal Color. No: Rashes Psychiatric: Present: Alert, Oriented x 3, Normal Insight, Normal Concentration Medical Decision Making ED Course and Treatment: 06/21/17 23:07 Impression: 21 year old female presents for nausea and vomiting after smoking marijuana and drinking ETOH at a republican tonight. Differential Diagnosis included but are not limited to: alcohol intoxication vs. marijuana use Plan: -- EKG -- Chest X-ray -- Labs, cardiac enzymes, alcohol level, lipase -- Urinalysis -- IV fluids -- Zofran -- Reassess and disposition Prior Visits: Notes and results from previous visits were reviewed. On 03/24/2017, pt was seen in the Emergency department for cough. Pt was discharged home. Progress Notes: Reviewed EKG, sinus tachycardia at 123 bpm. Incomplete right bundle branch block. Non-specific ST/T wave changes. pt interviewed by eduarda mccord and ajay mccord ok to dc 06/22/17 22:39 - Lab Interpretations Lab Results: 06/21/17 23:20 06/21/17 23:20 Lab Results 06/22/17 00:59: Urine Opiates Screen Negative, Urine Methadone Screen Negative, Ur Barbiturates Screen Negative, Ur Phencyclidine Scrn Negative, Ur Amphetamines Screen Negative, U Benzodiazepines Scrn Negative, U Oth Cocaine Metabols Negative, U Cannabinoids Screen Positive H 06/22/17 00:59: Urine Color Yellow, Urine Appearance Sl cloudy, Urine pH 6.0, Ur Specific [place] 1.020, Urine Protein Negative, Urine Glucose (UA) Negative, Urine Ketones Negative, Urine Blood Large H, Urine Nitrate Negative, Urine Bilirubin Negative, Urine Urobilinogen 0.2, Ur Leukocyte Esterase Moderate H, Urine RBC 2 - 5, Urine WBC 5 - 10, Ur Epithelial Cells 1 - 3, Urine Bacteria Mod 06/21/17 23:20: Alcohol, Quantitative 181 H 06/21/17 23:20: Sodium 147, Potassium 3.3 L, Chloride 109 H, Carbon Dioxide 22, Anion Gap 19, BUN 11, Creatinine 0.8, Est GFR ( Amer) > 60, Est GFR (Non- Af Amer) > 60, Random Glucose 122 H, Calcium 9.1, Total Bilirubin 0.5, AST 42 H , ALT 38, Alkaline Phosphatase 84, Lactate Dehydrogenase 693, Total Creatine Kinase 137, Troponin I < 0.01, Total Protein 7.1, Albumin 4.2, Globulin 2.9, Albumin/Globulin Ratio 1.4, Lipase 83 06/21/17 23:20: WBC 9.4 D, RBC 4.80, Hgb 11.4 L, Hct 35.1 L, MCV 73.1 L, MCH 23.8 L, MCHC 32.5, RDW 15.7 H, Plt Count 311, MPV 10.1, Gran % 64.2, Lymph % ( Auto) 28.3, Frio % (Auto) 4.8, Eos % (Auto) 2.2, Baso % (Auto) 0.5, Gran # 6.06 , Lymph # 2.7, Frio # 0.5, Eos # 0.2, Baso # 0.05 I have reviewed the lab results: Yes - EKG Interpretation Interpreted by ED Physician: Yes Type: 12 lead EKG - Medication Orders Current Medication Orders: Discontinued Medications Cephalexin Monohydrate (Keflex) 500 mg PO STAT STA PRN Reason: Protocol Stop: 06/22/17 02:36 Last Admin: 06/22/17 03:12 Dose: 500 mg Sodium Chloride (Sodium Chloride 0.9%) 1,000 mls @ 100 mls/hr IV .Q10H STA Stop: 06/22/17 09:06 Last Admin: 06/21/17 23:45 Dose: 100 mls/hr eMAR Start Stop Document 06/21/17 23:45 KENIA (Rec: 06/21/17 23:45 KENIA [id number]) Intravenous Solution Start Date 06/21/17 Start Time 23:45 Ondansetron HCl (Zofran Inj) 4 mg IVP STAT STA Stop: 06/21/17 23:08 Last Admin: 06/21/17 23:45 Dose: 4 mg IVP Administration Document 06/21/17 23:45 KENIA (Rec: 06/21/17 23:45 KENIA [id number]) Charges for Administration # of IVP Administrations 1 Potassium Chloride (K-Dur 20 Meq Er Tab) 20 meq PO ONCE ONE Stop: 06/22/17 00:20 Last Admin: 06/22/17 03:12 Dose: 20 meq - Scribe Statement The provider has reviewed the documentation as recorded by the Derrick Bates Provider Scribe Attestation: All medical record entries made by the Derrick were at my direction and personally dictated by me. I have reviewed the chart and agree that the record accurately reflects my personal performance of the history, physical exam, medical decision making, and the department course for this patient. I have also personally directed, reviewed, and agree with the discharge instructions and disposition. Disposition/Present on Arrival - Present on Arrival Any Indicators Present on Arrival: No History of DVT/PE: No History of Uncontrolled Diabetes: No Urinary Catheter: No History of Decub. Ulcer: No History Surgical Site Infection Following: None - Disposition Have Diagnosis and Disposition been Completed?: Yes Diagnosis: Alcohol intoxication, UTI (urinary tract infection), Substance abuse Disposition: HOME/ ROUTINE Disposition Time: 03:25 Condition: GOOD Discharge Instructions (ExitCare): Urinary Tract Infection in Women (DC), Alcohol Intoxication (ED), Cannabis Abuse (ED) Prescriptions: Cephalexin [Keflex] 500 mg PO BID #14 capsule Referrals: Orlando Corea MD [Primary Care Provider] - Follow up with primary Forms: [facility] ([place])
[2017-06-21 23:56] LABS: BASO # 0.05 K/mm3 (0.0-2.0); BASO % 0.5 % (0.0-3.0); EOS # 0.2 (0.0-0.7); EOS % 2.2 % (1.5-5.0); GRAN # 6.06 (1.4-6.5); GRAN % 64.2 % (50.0-68.0); HEMATOCRIT 35.1 % (36.0-48.0); LYMPH # 2.7 (1.2-3.4); LYMPH % 28.3 % (22.0-35.0); MEAN CELL VOLUME 73.1 fl (80.0-105.0); MEAN CORPUSCULAR HEMOGLOBIN 23.8 pg (25.0-35.0); MEAN CORPUSCULAR HGB CONC 32.5 g/dl (31.0-37.0); MEAN PLATELET VOLUME 10.1 fl (7.0-11.0); MONO # 0.5 (0.1-0.6); MONO % 4.8 % (1.0-6.0); RED CELL DISTRIBUTION WIDTH 15.7 % (11.5-14.5); WHITE BLOOD COUNT 9.4 10^3/ul (4.5-11.0)
[2017-06-22 00:11] LABS: ALB/GLOB RATIO 1.4 (1.1-1.8); ALKALINE PHOSPHATASE 84 U/L (38-126); ALT/SGPT 38 U/L (7-56); AST/SGOT 42 U/L (14-36); BILIRUBIN,TOTAL 0.5 mg/dL (0.2-1.3); BLOOD UREA NITROGEN 11 mg/dL (7-21); CALCIUM 9.1 mg/dL (8.4-10.5); CARBON DIOXIDE 22 mmol/L (21-33); CHLORIDE 109 mmol/L (98-107); GFR AFRICAN-AMERICAN > 60; GLUCOSE,RANDOM 122 mg/dL (70-110); LIPASE 83 U/L (23-300); POTASSIUM 3.3 mmol/L (3.6-5.0); SODIUM 147 mmol/L (132-148); TOTAL PROTEIN 7.1 g/dL (5.8-8.3)
[2017-06-22] MEDS ORDERED: Potassium Chloride 20 mEq ER Tab PO ONE (00:19)
[2017-06-22 00:23] LABS: TROPONIN I < 0.01 ng/mL
[2017-06-22 01:30] LABS: URINE BILIRUBIN NEGATIVE (NEGATIVE); URINE BLOOD LARGE (NEGATIVE); URINE GLUCOSE (UA) NEGATIVE (NEGATIVE); URINE KETONE NEGATIVE (NEGATIVE); URINE LEUKOCYTE ESTERASE MODERATE Leu/uL (NEGATIVE); URINE PROTEIN NEGATIVE mg/dL (<30 mg/dL); URINE UROBILINOGEN 0.2 E.U./dL (<1 E.U./dL)
[2017-06-22 01:44] LABS: URINE APPEARANCE SL CLOUDY (CLEAR); URINE COLOR YELLOW (YELLOW)
[2017-06-22 01:47] LABS: URINE BACTERIA MOD (NEG)
[2017-06-22 03:22] VITALS: BP 134/78; PULSE 87
--- NOTE | 2017-06-22 10:10 | CARD ---
APPROVED REPORT EKG Measurement Heart [id number] <Conclusion> Sinus tachycardia PRWP V 1 - 3: probably lead placement
== END 2017-06-22 03:22 | disposition home or self-care (01) ==
LOC: ED 22:45
DX: F10.129 Alcohol abuse with intoxication, unspecified (principal); Y90.6 Blood alcohol level of 120-199 mg/100 ml; N39.0 Urinary tract infection, site not specified; F12.90 Cannabis use, unspecified, uncomplicated; F17.210 Nicotine dependence, cigarettes, uncomplicated
CPT/HCPCS: 80053; 80320; 80324; 80345; 80346; 80349; 80353; 80358; 80361; 81001; 82550; 83615; 83690; 83992; 84484; 85025; 93005; 96374; 99282; J2405; J7040

== ENCOUNTER 2017-12-09 17:04 | Emergency (ER) | payer OTHER ==
[2017-12-09 17:05] VITALS: BMI 49.8
[2017-12-09 17:33] VITALS: BP 117/56; PULSE 82; RESP 18; TEMP 98.9; O2SAT 98
== END 2017-12-09 23:18 | disposition left against medical advice (07) ==
LOC: ED 17:04
DX: Z02.89 Encounter for other administrative examinations (principal); Z00.00 Encounter for general adult medical examination without abnormal findings

== ENCOUNTER 2018-03-11 14:55 | Emergency (ER) | payer MEDICAID, OTHER ==
[2018-03-11 15:31] VITALS: BMI 49.1
[2018-03-11 15:32] VITALS: RESP 18; O2SAT 99
--- NOTE | 2018-03-11 15:59 | ED PDOC ---
Arrival/HPI - General Chief Complaint: Abnormal Skin Integrity Time Seen by Provider: 03/11/18 15:56 Historian: Patient - History of Present Illness Narrative History of Present Illness (Text): 03/11/18 15:56 This 22 yo female presents to this ED c/o right 2nd finger tip laceration x [employer]. Patient stated while using a potato cutter, she accidentally cut her finger. Patient stated she UTD tetanus. Denies other complains. 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 - Pulmonary Hx Respiratory Disorders: No - Neurological Hx Neurological Disorder: No Hx Alzheimer's Disease: No - HEENT Hx HEENT Disorder: No - Renal Hx Renal Disorder: No - Endocrine/Metabolic Hx Endocrine Disorders: No - Hematological/Oncological Hx Blood Disorders: No - Integumentary Hx Dermatological Disorder: No - Musculoskeletal/Rheumatological Hx Musculoskeletal Disorders: No - Gastrointestinal Hx Gastrointestinal Disorders: No - Genitourinary/Gynecological Other/Comment: HPV - Psychiatric Hx Psychophysiologic Disorder: Yes Hx Anxiety: Yes Hx Substance Use: Yes (CANNABIS) - Surgical History 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 - Anesthesia Hx Anesthesia: Yes Hx Anesthesia Reactions: No Hx Malignant Hyperthermia: No Family/Social History - Physician Review Nursing Documentation Reviewed: Yes Family/Social History: Other (noncontributory) Smoking Status: Light Smoker < 10 Cigarettes Daily Hx Alcohol Use: Yes Hx Substance Use: Yes (CANNABIS) Allergies/Home Meds Allergies/Adverse Reactions: Allergies milk Allergy (Verified 02/12/17 13:04) ANAPHYLAXIS peanut Allergy (Verified 12/09/17 17:33) ANAPHYLAXIS Penicillins Allergy (Verified 12/09/17 17:33) ANAPHYLAXIS shellfish derived Allergy (Verified 12/09/17 17:33) ANAPHYLAXIS Home Medications: Home Meds Medication Instructions Recorded Confirmed No Known Home Med 07/04/17 03/11/18 Review of Systems - Review of Systems Constitutional: Normal. absent: Fatigue, Weight Change, Fevers Eyes: Normal ENT: Normal Respiratory: Normal Cardiovascular: Normal Gastrointestinal: Normal Genitourinary Female: Normal Musculoskeletal: Other (right 2nd finger tip laceration) Skin: Normal Neurological: Normal Endocrine: Normal Hemo/Lymphatic: Normal Psychiatric: Normal Physical Exam Vital Signs Temp Pulse Resp BP Pulse Ox 03/11/18 16:45 68 18 115/74 99 03/11/18 15:31 98.4 F 70 18 117/76 99 Temperature: Afebrile Blood Pressure: Normal Pulse: Regular Respiratory Rate: Normal Appearance: Positive for: Well-Appearing, Non-Toxic, Comfortable Pain Distress: None Mental Status: Positive for: Alert and Oriented X 3 - Systems Exam Head: Present: Atraumatic, Normocephalic Mouth: Present: Moist Mucous Membranes Neck: Present: Normal Range of Motion Back: Present: Normal Inspection Upper Extremity: Present: Normal ROM, NORMAL PULSES, Neurovascularly Intact, Capillary Refill < 2s, Other ((+) superficial laceration at palmar aspect of right 2nd finger tip, approx. 1 cm. Finger has FROM). No: Cyanosis, Edema Lower Extremity: Present: Normal Inspection, Normal ROM. No: Edema Neurological: Present: GCS=15, CN II-XII Intact, Speech Normal, Motor Func Grossly Intact, Normal Sensory Function, Normal Cerebellar Funct, Gait Normal, Memory Normal Skin: Present: Warm, Dry, Normal Color. No: Rashes Psychiatric: Present: Alert, Oriented x 3, Normal Insight, Normal Concentration Medical Decision Making ED Course and Treatment: 03/11/18 17:00 Re-evaluation. Patient feels better. Discussed results and plan with patient who expresses understanding. All questions answered and there is agreement with the plan to discharge home with instructions. Patient stable for discharge. Return if symptoms persist or worsen. - Procedure PROCEDURE NOTE (Text): 03/11/18 17:01 PROCEDURE: LACERATION REPAIR Performed by the emergency provider Location: right index finger Length: 1 cm Description: clean wound edges, no foreign bodies Distal CMS: Normal. No deficits. Neurovascularly intact. Anesthesia: none Preparation: The wound was cleaned with NS and Betadyne. The area was prepped and draped in the usual sterile fashion. Exploration: The wound was explored and no foreign bodies were found. Procedure: The wound was closed with Dermabond. There was good approximation. Post-Procedure: Good closure and hemostasis. The patient tolerated the procedure well and there were no complications. CSM remains intact. Post procedure dressing applied. Disposition/Present on Arrival - Present on Arrival Any Indicators Present on Arrival: No History of DVT/PE: No History of Uncontrolled Diabetes: No Urinary Catheter: No History of Decub. Ulcer: No History Surgical Site Infection Following: None - Disposition Have Diagnosis and Disposition been Completed?: Yes Diagnosis: Finger laceration Disposition: HOME/ ROUTINE Disposition Time: 17:03 Patient Plan: Discharge Condition: GOOD Discharge Instructions (ExitCare): Laceration Repair With Glue (DC) Additional Instructions: Call private doctor for follow up visit in 1-2 days. Take medication as instructed. Keep wound clean and dry for 2 days, then clean wound daily with soap and water. Return to emergency if finger becomes infected, pus or painful Referrals: Orlando Corea MD [Primary Care Provider] - Follow up with primary Forms: [employer] (Polish)
[2018-03-11 17:34] VITALS: BP 118/70; PULSE 65; TEMP 98
== END 2018-03-11 17:17 | disposition home or self-care (01) ==
LOC: ED 14:55
DX: S61.210A Laceration without foreign body of right index finger without damage to nail, initial encounter (principal); W27.8XXA Contact with other nonpowered hand tool, initial encounter; Y93.G1 Activity, food preparation and clean up; Y92.89 Other specified places as the place of occurrence of the external cause

== ENCOUNTER 2018-08-21 06:52 | Emergency (ER) | payer BC, MEDICAID ==
[2018-08-21 07:20] VITALS: BMI 23.6
[2018-08-21 07:26] VITALS: RESP 18; O2SAT 98
--- NOTE | 2018-08-21 07:59 | ED PDOC ---
Arrival/HPI - General Chief Complaint: Finger,Hand,&Wrist Time Seen by Provider: 08/21/18 07:02 Historian: Patient - History of Present Illness Narrative History of Present Illness (Text): 08/21/18 07:35 22 y/o F, with past medical history of WPW s/p ablation, presents to the ED complaining of worsening left wrist pain since today. Patient reports experiencing left sided arthralgias for couple months with intermittent improvem ent to symptoms. Patient informs associated rash throughout her thigh and feet couple months ago, which resolved spontaneously. Patient denies any changes in clothing or skincare products at the time. Patient informs worsening left wrist arthralgia this morning associated with stiffness and difficulty with movement, prompting her to present to the ED for medical evaluation. Patient denies any recent trauma or injury to the site. Patient denies any other associated somatic complaints. Patient denies any fevers, chills, headache, dizziness, chest pain, shortness of breath, cough, abdominal pain, nausea, vomiting, diarrhea, back pain, neck pain, or any other complaints. Patient informs family history of Lupus in her maternal aunt. Patient admits to smoking cigarettes. PMD: Dr. Corea Time/Duration: > month Symptom Onset: Gradual Symptom Course: Unchanged Activities at Onset: Rest Context: Home Past Medical History - Provider Review Nursing Documentation Reviewed: Yes - Travel History Have you recently traveled outside [place] w/in the past 3 mons?: No - Infectious Disease Hx of Infectious Diseases: None - Tetanus Immunization Tetanus Immunization: Unknown - Cardiac Hx Cardiac Disorders: Yes Hx Cardiac Arrhythmia: Yes (WPW) Other/Comment: Hrtfg-Zoqrctvh-Soitm Syndrome - Pulmonary Hx Respiratory Disorders: No - Neurological Hx Neurological Disorder: No Hx Alzheimer's Disease: No - HEENT Hx HEENT Disorder: No - Renal Hx Renal Disorder: No - Endocrine/Metabolic Hx Endocrine Disorders: No - Hematological/Oncological Hx Blood Disorders: No - Integumentary Hx Dermatological Disorder: No - Musculoskeletal/Rheumatological Hx Musculoskeletal Disorders: No - Gastrointestinal Hx Gastrointestinal Disorders: No - Genitourinary/Gynecological Other/Comment: HPV - Psychiatric Hx Psychophysiologic Disorder: Yes Hx Anxiety: Yes Hx Substance Use: Yes (CANNABIS) - Surgical History Other/Comment: Dzwjn-Ohqmwvyg-Dewnf Syndrome ablasion August 2014 - Anesthesia Hx Anesthesia: Yes Hx Anesthesia Reactions: No Hx Malignant Hyperthermia: No Family/Social History - Physician Review Nursing Documentation Reviewed: Yes Family/Social History: Unknown Family HX Smoking Status: Light Smoker < 10 Cigarettes Daily Hx Alcohol Use: Yes Hx Substance Use: Yes (CANNABIS) Allergies/Home Meds Allergies/Adverse Reactions: Allergies milk Allergy (Verified 08/21/18 07:26) ANAPHYLAXIS peanut Allergy (Verified 08/21/18 07:26) ANAPHYLAXIS Penicillins Allergy (Verified 08/21/18 07:26) ANAPHYLAXIS shellfish derived Allergy (Verified 08/21/18 07:26) ANAPHYLAXIS Review of Systems - Physician Review All systems were reviewed & negative as marked: Yes - Review of Systems Constitutional: absent: Fevers Respiratory: absent: SOB, Cough Cardiovascular: absent: Chest Pain, JOHNSON Gastrointestinal: absent: Abdominal Pain, Diarrhea, Nausea, Vomiting Genitourinary Female: absent: Dysuria Musculoskeletal: Arthralgias (left wrist ). absent: Back Pain, Neck Pain Skin: Rash Neurological: absent: Headache, Dizziness Physical Exam Vital Signs Reviewed: Yes Vital Signs Temp Pulse Resp BP Pulse Ox 08/21/18 07:23 98.7 F 98 H 18 127/74 98 Temperature: Afebrile Blood Pressure: Normal Pulse: Regular Respiratory Rate: Normal Appearance: Positive for: Well-Appearing, Non-Toxic, Comfortable Pain Distress: None Mental Status: Positive for: Alert and Oriented X 3 - Systems Exam Head: Present: Atraumatic, Normocephalic Pupils: Present: PERRL Extroacular Muscles: Present: EOMI Conjunctiva: Present: Normal Neck: Present: Normal Range of Motion Respiratory/Chest: Present: Clear to Auscultation, Good Air Exchange. No: Respiratory Distress, Accessory Muscle Use Cardiovascular: Present: Regular Rate and Rhythm, Normal S1, S2. No: Murmurs Abdomen: No: Tenderness, Distention, Peritoneal Signs Upper Extremity: Present: NORMAL PULSES, Neurovascularly Intact, Other (Pain with extension and flexion of left wrist. Was able to make OKAY sign with mild difficulty.). No: Cyanosis, Edema Lower Extremity: Present: Normal Inspection. No: Edema Neurological: Present: GCS=15, CN II-XII Intact, Speech Normal Skin: Present: Warm, Dry, Normal Color. No: Rashes Psychiatric: Present: Alert, Oriented x 3, Normal Insight, Normal Concentration Medical Decision Making ED Course and Treatment: 08/21/18 07:35 Impression: 22 year old female presents to the ED for evaluation of left sided arthralgias since couple months. Differential Diagnosis included but are not limited to: -- Lupus -- Rheumatoid arthritis -- Musculoskeletal pain Plan: -- Motrin -- Prednisone -- Reassess and disposition Prior Visits: Notes and results from previous visits were reviewed. Progress No alyssa: 08/21/18 08:34 Shared decision making regarding need to follow up with rheumatology for further testing. She will follow up. Scripts provided. She is stable for discharge. - Medication Orders Current Medication Orders: Discontinued Medications Ibuprofen (Motrin Tab) 600 mg PO STAT STA Stop: 08/21/18 07:36 Last Admin: 08/21/18 07:45 Dose: 600 mg MAR Pain/Vitals Document 08/21/18 07:45 SRE (Rec: 08/21/18 07:45 SRE [id number]) Pain Reassessment Is This A Pain ReAssessment? Yes Sleep Is patient sleeping during reassessment? No Presence of Pain Presence of Pain Yes Pain Scale Used Protocol: PSCALES Pain Scale Used Numeric Location Pain Location Body Site Neck Description Intermittent Prednisone (Prednisone Tab) 60 mg PO STAT ONE Stop: 08/21/18 07:36 Last Admin: 08/21/18 07:44 Dose: 60 mg - Scribe Statement The provider has reviewed the documentation as recorded by the Scribe Stacie Moody. All medical record entries made by the Scribe were at my direction and personally dictated by me. I have reviewed the chart and agree that the record accurately reflects my personal performance of the history, physical exam, medical decision making, and the department course for this patient. I have also personally directed, reviewed, and agree with the discharge instructions and disposition. Disposition/Present on Arrival - Present on Arrival Any Indicators Present on Arrival: No History of DVT/PE: No History of Uncontrolled Diabetes: No Urinary Catheter: No History of Decub. Ulcer: No History Surgical Site Infection Following: None - Disposition Have Diagnosis and Disposition been Completed?: Yes Diagnosis: Joint pain Disposition: HOME/ ROUTINE Disposition Time: 08:34 Patient Plan: Discharge Condition: STABLE Discharge Instructions (ExitCare): Muscle and Bone Pain (DC) Print Language: OCCITAN Additional Instructions: All medical record entries made by the Scribe were at my direction and personally dictated by me. I have reviewed the chart and agree that the record accurately reflects my personal performance of the history, physical exam, medical decision making, and the department course for this patient. I have also personally directed, reviewed, and agree with the discharge instructions and disposition. Please follow up with your PCP Please follow up with the rhuematologist. Take Motrin for pain every SIX hours WITH FOOD for pain. Prescriptions: RX: Ibuprofen [Motrin Tab] 600 mg PO Q6H PRN 6 Days #24 tab PRN Reason: Pain, Moderate (4-7) Referrals: [facility] [place]] - Follow up with primary Reg Ellis MD [Medical Doctor] - Follow up with primary Carri Landers MD [Medical Doctor] - Follow up with primary Forms: [employer] (Gibraltarian), WORK NOTE
[2018-08-21 08:36] VITALS: BP 118/62; PULSE 68; TEMP 98
== END 2018-08-21 08:36 | disposition home or self-care (01) ==
LOC: ED 06:52
DX: M25.50 Pain in unspecified joint (principal); F17.210 Nicotine dependence, cigarettes, uncomplicated; I45.6 Pre-excitation syndrome

== ENCOUNTER 2019-01-19 07:07 | Emergency (ER) | payer MEDICAID, OTHER ==
[2019-01-19 07:25] VITALS: O2SAT 99; BMI 43.4
--- NOTE | 2019-01-19 07:30 | ED PDOC ---
Arrival/HPI - General Historian: Patient - History of Present Illness Narrative History of Present Illness (Text): 01/19/19 07:27 CC: knee pain HPI: 23 yo female w/ PMH of ? lupus comes to ED for evaluation of right anterior knee pain. Patient states the pain started yesterday. Admits to previous episodes in the past in different joints as well. Attributes this to her undiagnosed lupus history. Has been unable to followup with rheumatology due to insurance issues. Patient states she has been here multiple times s/p fall where she hurt her ankle in July 2018. Since then, she has had rashes and polyarticular pain in different joints for which she responds well to Ibuprofen and Prednisone in past. Denies fevers, chills, chest pain, trauma, rashes, sob, n/v, constipation or diarrhea, and dysuria. Time/Duration: 24 hours Symptom Onset: Sudden Symptom Course: Unchanged Quality: Aching Severity Level: 7 Activities at Onset: Rest Context: Sitting <Helena Palmer - Last Filed: 01/19/19 09:33> <Regla Hassan - Last Filed: 01/19/19 09:52> - General Chief Complaint: Pain, Chronic Time Seen by Provider: 01/19/19 07:09 Past Medical History - Provider Review Nursing Documentation Reviewed: Yes - Infectious Disease Hx of Infectious Diseases: None - Tetanus Immunization Tetanus Immunization: Unknown - Cardiac Hx Cardiac Disorders: Yes Hx Cardiac Arrhythmia: Yes (WPW) Hx Hypertension: No - Pulmonary Hx Respiratory Disorders: No - Neurological Hx Neurological Disorder: No - HEENT Hx HEENT Disorder: No - Renal Hx Renal Disorder: No - Endocrine/Metabolic Hx Endocrine Disorders: Yes Hx Systemic Lupus Erythematosus: Yes - Hematological/Oncological Hx Blood Disorders: No - Integumentary Hx Dermatological Disorder: No - Musculoskeletal/Rheumatological Hx Musculoskeletal Disorders: No - Gastrointestinal Hx Gastrointestinal Disorders: No - Genitourinary/Gynecological Hx Genitourinary Disorders: No - Psychiatric Hx Psychophysiologic Disorder: Yes Hx Anxiety: Yes Hx Substance Use: No - Surgical History Other/Comment: Indgs-Grojltrp-Hxwwz Syndrome ablasion August 2014 - Anesthesia Hx Anesthesia: Yes Hx Anesthesia Reactions: No Hx Malignant Hyperthermia: No <Helena Palmer - Last Filed: 01/19/19 09:33> Family/Social History - Physician Review Nursing Documentation Reviewed: Yes Family/Social History: No Known Family HX Smoking Status: Light Smoker < 10 Cigarettes Daily Hx Alcohol Use: Yes Frequency of alcohol use: Socially Hx Substance Use: No <Helena Palmer - Last Filed: 01/19/19 09:33> Allergies/Home Meds <Helena Palmer - Last Filed: 01/19/19 09:33> <Regla Hassan - Last Filed: 01/19/19 09:52> Allergies/Adverse Reactions: Allergies peanut Allergy (Mild, Verified 09/29/18 08:38) RASH milk Allergy (Verified 09/29/18 08:38) ANAPHYLAXIS Penicillins Allergy (Verified 09/29/18 08:38) ANAPHYLAXIS shellfish derived Allergy (Verified 09/29/18 08:38) ANAPHYLAXIS Review of Systems - Review of Systems Constitutional: Normal. absent: Fatigue, Weight Change, Fevers Eyes: Normal. absent: Vision Changes, Photophobia ENT: Normal. absent: Hearing Changes, Tinnitus Respiratory: Normal. absent: SOB, Cough, Sputum, Wheezing Cardiovascular: Normal. absent: Chest Pain, Palpitations, Edema Gastrointestinal: Normal. absent: Abdominal Pain, Stool Changes, Constipation, Diarrhea, Nausea, Vomiting Genitourinary Female: Normal. absent: Dysuria Musculoskeletal: Arthralgias. absent: Normal Skin: Normal. absent: Rash, Pruritis, Skin Lesions, Laceration Neurological: Normal. absent: Headache, Dizziness, Focal Weakness Endocrine: Normal. absent: Diaphoresis, Polyuria, Polydipsia Hemo/Lymphatic: Normal. absent: Adenopathy, Easy Bleeding, Easy Bruising Psychiatric: Normal. absent: Anxiety, Depression <Helena Palmer - Last Filed: 01/19/19 09:33> Physical Exam Vital Signs Reviewed: Yes Vital Signs Temp Pulse Resp BP Pulse Ox 01/19/19 07:17 97.9 F 79 17 139/70 99 Temperature: Afebrile Blood Pressure: Normal Pulse: Regular Respiratory Rate: Normal Appearance: Positive for: Well-Appearing, Non-Toxic, Comfortable Pain Distress: Mild Mental Status: Positive for: Alert and Oriented X 3 - Systems Exam Head: Present: Atraumatic, Normocephalic Pupils: Present: PERRL Extroacular Muscles: Present: EOMI Conjunctiva: Present: Normal Mouth: Present: Moist Mucous Membranes Pharnyx: Present: Normal Neck: Present: Normal Range of Motion. No: Meningeal Signs, JVD Respiratory/Chest: Present: Clear to Auscultation, Good Air Exchange. No: Respiratory Distress, Accessory Muscle Use Cardiovascular: Present: Regular Rate and Rhythm, Normal S1, S2. No: Murmurs Abdomen: Present: Normal Bowel Sounds. No: Tenderness, Distention, Peritoneal Signs Upper Extremity: Present: Normal Inspection. No: Cyanosis, Edema Lower Extremity: Present: Normal Inspection, NORMAL PULSES, Tenderness (anterior knee tenderness, restricted ROM of right knee). No: Edema, CALF TENDERNESS Neurological: Present: GCS=15, CN II-XII Intact, Speech Normal Skin: Present: Warm, Normal Color. No: Rashes Psychiatric: Present: Alert, Oriented x 3, Normal Insight, Normal Concentration <Helena Palmer - Last Filed: 01/19/19 09:33> Vital Signs Temp Pulse Resp BP Pulse Ox 01/19/19 07:17 97.9 F 79 17 139/70 99 <Regla Hassan - Last Filed: 01/19/19 09:52> Medical Decision Making ED Course and Treatment: 01/19/19 07:35 Impression 23 yo female w/ PMH of ? lupus comes to ED for evaluation of right anterior knee pain. Plan -Xray -Ibuprofen 600 -Prednisone 60 Prior Visits All prior documentation and lab work reviewed prior to evaluation Progress Notes pending knee xray imaging for dispo will monitor clinical response of pain to NSAID and steroids 01/19/19 09:33 Patient ambulating w/o difficulty, pain is much improved will discharged with outpatient followup instructions will discuss to continue medrol dose pack can use Motrin as needed for pain Re-evaluation Time: 09:34 Reassessment Condition: Re-examined, Improving,but remains with symptoms <Helena Palmer - Last Filed: 01/19/19 09:33> ED Course and Treatment: 01/19/19 08:01 Patient Seen with Resident: In agreement with resident note which contains more details about the patient. Patient seen and evaluated with resident. Came up with plan and treatment together. Patient presenting with atraumatic R knee pain. Xray negative. Ambulating around the ED without issue after anti-inflammatory. Reports prior history of same that improved after prednisone. Instructed on importance of following up with PMD for further evaluation by rheumatology and orthopedics. 05/28/19 09:51 - RAD Interpretation Radiology Orders: 01/19/19 07:28 KNEE W PATELLA RIGHT 3 VIEW [RAD] Stat - Medication Orders Current Medication Orders: Discontinued Medications Ibuprofen (Motrin Tab) 600 mg PO STAT STA Stop: 01/19/19 07:30 Last Admin: 01/19/19 07:59 Dose: 600 mg MAR Pain/Vitals Document 01/19/19 07:59 ZEINABTerrence (Rec: 01/19/19 08:00 HARRIETT [id number]) Pain Reassessment Is This A Pain ReAssessment? No Sleep Is patient sleeping during reassessment? No Presence of Pain Presence of Pain Yes Pain Scale Used Protocol: PSCALES Pain Scale Used Numeric Prednisone (Prednisone Tab) 60 mg PO STAT ONE Stop: 01/19/19 07:30 Last Admin: 01/19/19 08:00 Dose: 60 mg <Regla Hassan - Last Filed: 01/19/19 09:52> - PA / [employer]INTE[employer]CE MECH[employer]IC / Resident Statement KERRY has reviewed & agrees with the documentation as recorded. KERRY has examined the patient and agrees with the treatment plan. <Regla Hassan - Last Filed: 01/19/19 09:52> Disposition/Present on Arrival - Present on Arrival Any Indicators Present on Arrival: No History of DVT/PE: No History of Uncontrolled Diabetes: No Urinary Catheter: No History of Decub. Ulcer: No History Surgical Site Infection Following: None - Disposition Have Diagnosis and Disposition been Completed?: Yes Disposition Time: 09:34 Patient Plan: Discharge <Helena Palmer - Last Filed: 01/19/19 09:33> <Regla Hassan - Last Filed: 01/19/19 09:52> - Disposition Diagnosis: Lupus arthritis Disposition: HOME/ ROUTINE Patient Problems: Current Active Problems Problem Status Onset Lupus arthritis Acute Condition: FAIR Additional Instructions: 1. Please followup with primary medical doctor within a week of discharge of hospital. 2. Please followup with rheumatology doctor outpatient within a week of discharge of hospital. 3. Discussed to continue medrol dose pack 4. Educated patient on use of Motrin as needed for pain Prescriptions: Prednisone [Deltasone] 20 mg PO DAILY #3 tablet Referrals: Jhoan Ayers MD [Staff Provider] - Follow up with primary Forms: [employer] (Pu[place] Rican)
[2019-01-19 09:40] VITALS: BP 128/76; PULSE 73; RESP 18; TEMP 98
--- NOTE | 2019-01-19 09:43 | RAD ---
Date of service: 01/19/2019 PROCEDURE: Right Knee Radiographs. HISTORY: knee pain COMPARISON: None. TECHNIQUE: 2 views obtained. FINDINGS: BONES: No acute fracture or destructive bony lesion identified. JOINTS: No subluxation or dislocation identified. JOINT EFFUSION: None. OTHER FINDINGS: None. IMPRESSION: Unremarkable radiographs of the right knee.
== END 2019-01-19 10:00 | disposition home or self-care (01) ==
LOC: ED 07:07
DX: M32.9 Systemic lupus erythematosus, unspecified (principal)